=== PATIENT | female | born 1975 | race Hispanic/Latino ===

== ENCOUNTER 2024-02-03 06:40 | Emergency (ER) | payer SELFPAY ==
[2024-02-03 07:46] LABS: Absolute Basophils 0.1 K/uL (0-0.5); Absolute Eosinophils 0.3 K/uL (0-0.5); Absolute Lymphocytes (CBC) 4.1 K/uL (0.7-4.9); Absolute Monocytes 0.6 K/uL (0.1-1.3); Absolute Neutrophil 7.3 K/uL (1.8-8.0); Basophils % 0.8 % (0-1.3); Eosinophils % 2.4 % (0-4.4); Hematocrit 42.3 % (36.0-45.0); MCH 29.3 pg (27.0-35.0); MCHC 33.1 g/dL (32.0-36.0); MCV 88.7 fL (80-100); MPV 9.1 fL (7.6-11.3); Neutrophils % 58.8 % (41.7-73.7); Platelets 303 thou/uL (152-406); RBC Red Blood Cell Count 4.77 M/uL (3.86-4.86); Red Cell Distribution Width 13.1 % (12.1-15.2)
[2024-02-03 08:13] LABS: ALT/SGPT 17 U/L (13-56); AST/SGOT < 10 U/L (15-37); Albumin 3.4 g/dL (3.4-5.0); Alkaline Phosphatase 70 U/L (45-117); BUN Blood Urea Nitrogen 14 mg/dL (7-18); Bicarbonate 21 mEq/L (21-32); Bilirubin Direct 0.2 mg/dL (0-0.2); Bilirubin Indirect, Calculated 0.4 mg/dL (0.2-0.8); Bilirubin Total 0.6 mg/dL (0.2-1.0); Globulin 3.5 g/dL (2.3-3.5); Glomerular Filtration Rate 68 ml/min (=/>90); Glucose Level 109 mg/dL (74-106); Lipase 40 U/L (13-75); Protein, Total 6.9 g/dL (6.4-8.2); Sodium Level 137 mEq/L (136-145); Troponin High Sensitivity < 3.0 pg/mL (<58.9)
--- NOTE | 2024-02-03 08:29 | RAD REPORT ---
EXAM DESCRIPTION: RAD - Chest Single View - 02/03/2024 8:22 am CLINICAL HISTORY: CHEST PAIN COMPARISON: No comparisons FINDINGS: Lines: None. Lungs: No evidence of edema or pneumonia. Pleural: No significant pleural effusions or pneumothorax. Cardiac: The heart size is within normal limits. Mediastinum: Within normal limits. Bones: No acute fractures. Other: None IMPRESSION: No acute cardiopulmonary disease.
--- NOTE | 2024-02-03 10:25 | ER ---
Nurse's Notes [facility] Name: Saray Reed Age: 48 yrs Sex: Female : 1975 Arrival Date: 02/03/2024 Time: 06:40 Bed 5 Private MD: Diagnosis: Chest pain, unspecified;Hypokalemia Presentation: 02/02 06:49 Chief complaint: EMS states: chest pain and shortness of breath that woke her up this cp4 morning. Coronavirus screen: Client denies travel out of the [place] in the last 14 days. At this time, the client does not indicate any symptoms associated with coronavirus-19. Ebola Screen: Patient negative for fever greater than or equal to 101.5 degrees Fahrenheit, and additional compatible Ebola Virus Disease symptoms Patient denies exposure to infectious person. Patient denies travel to an Ebola-affected area in the 21 days before illness onset. No symptoms or risks identified at this time. Initial Sepsis Screen: Does the patient meet any 2 criteria? No. Patient's initial sepsis screen is negative. Does the patient have a suspected source of infection? No. Patient's initial sepsis screen is negative. Risk Assessment: Do you want to hurt yourself or someone else? Patient reports no desire to harm self or others. Onset of symptoms was February 03, 2024. 06:49 Method Of Arrival: EMS: [facility] 06:49 Acuity: PAT 3 cp4 Triage Assessment: 06:50 General: Appears uncomfortable, Behavior is calm, cooperative, appropriate for age. cp4 Pain: Complains of pain in chest. Cardiovascular: Rhythm is sinus rhythm with 1st degree heart block Chest pain. 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 - Infectious Disease History:: Denies. - Social history:: Smoking status: Patient denies any tobacco usage or history of. - Family history:: not pertinent. Screenin:47 Abuse screen: Denies threats or abuse. Denies injuries from another. Nutritional ha1 screening: No deficits noted. Tuberculosis screening: No symptoms or risk factors identified. 06:52 [facility] ED Fall Risk Assessment (Adult) History of falling in the last 3 months, cp4 including since admission No falls in past 3 months (0 pts) Confusion or Disorientation No (0 pts) Intoxicated or Sedated No (0 pts) Impaired Gait Mobility Assist Device Used No (0 pt) Altered Elimination No (0 pt) Score/Fall Risk Level 0 - 2 = Low Risk. Assessment: 06:52 Reassessment: No changes from previously documented assessment. cp4 07:35 Reassessment: Patient appears in no apparent distress at this time. No changes from 6 previously documented assessment. Patient and/or family updated on plan of care and expected duration. Pain level reassessed. Patient is alert, oriented x 3, equal unlabored respirations, skin warm/dry/pink. 08:55 Reassessment: Patient appears in no apparent distress at this time. No changes from kc6 previously documented assessment. Patient and/or family updated on plan of care and expected duration. Pain level reassessed. Patient is alert, oriented x 3, equal unlabored respirations, skin warm/dry/pink. 09:55 Reassessment: Patient appears in no apparent distress at this time. No changes from 6 previously documented assessment. Patient and/or family updated on plan of care and expected duration. Pain level reassessed. Patient is alert, oriented x 3, equal unlabored respirations, skin warm/dry/pink. Vital Signs: 06:49 BP 135 / 72; Pulse 90; Resp 18; Temp 98; Pulse Ox 100% ; Weight 68.04 kg; Height 5 ft. cp4 2 in. ; 09:29 BP 116 / 67; Pulse 76; Resp 16 S; Pulse Ox 100% on R/A; kc6 06:49 Body Mass Index 27.44 (68.04 kg, 157.48 cm) cp4 ED Course: 06:47 Patient arrived in ED. ha1 06:47 EKG done, by ED staff. Inserted saline lock: 20 gauge in right antecubital area, using ha1 aseptic technique. Blood collected. 06:50 Triage completed. cp4 06:50 Arm band placed on right wrist. Patient placed in an exam room, on a stretcher. cp4 06:52 No provider procedures requiring assistance completed. cp4 06:52 Bed in low position. Call light in reach. Side rails up X2. Placed in gown. Provided cp4 Education on: chest pain. 06:56 Rasheed Mejia MD is Attending Physician. rt 07:00 Report received from Jailene Hung RN. front desk monitor on. Pulse ox on. NIBP on. Pillow kc6 given. 07:16 Karina Young, RN is Primary Nurse. kc6 08:24 XRAY Chest (1 view) In Process Unspecified. EDMS 09:18 EKG done, by ED staff, reviewed by Rasheed Mejia MD. em1 09:28 Troponin High Sensitivity Sent. em1 09:28 Repeat lab(s) drawn. by me, sent to lab. em1 10:29 IV discontinued, intact, bleeding controlled, No redness/swelling at site. Pressure ap3 dressing applied. Administered Medications: No medications were administered Medication: 06:52 VIS not applicable for this client. cp4 Outcome: 10:24 Discharge ordered by MD. rt 10:30 Discharged to home ambulatory, with significant other, kc6 10:30 Condition: good 10:30 Discharge instructions given to patient, significant other, Instructed on discharge instructions, follow up and referral plans. medication usage, Demonstrated understanding of instructions, follow-up care, medications, Prescriptions given X 1, 10:30 Patient left the ED. kc6 Signatures: Dispatcher [employer] EDSC Enoch Otero em1 Allison Saldivar RN RN ap3 Jailene Hung RN RN ha1 Karina Young, ALEKSANDER RN kc6 Rasheed Mejia MD MD rt Jesika Thompson cp4
--- NOTE | 2024-02-03 10:25 | EDPHYS ---
Physician Documentation [facility] Name: Saray Reed Age: 48 yrs Sex: Female : 1975 Arrival Date: 02/03/2024 Time: 06:40 Bed 5 Private MD: ED Physician Rasheed Mejia HPI: 02/02 07:43 This 48 yrs old Female presents to ER via EMS with complaints of Chest Pain. rt 07:43 Patient presents to the ED with chest pain, shortness of breath that started at 5 AM. rt Is been waxing and waning in intensity, has improved significantly upon arrival to the ED. The pain is substernal, radiates to the jaw, left arm. She associated nausea, with sweating. Patient states that she had an abnormal stress test about a year ago, did not have a heart cath. Denies other acute complaints at this time, symptoms are moderate in severity, no other aggravating alleviating factors.. ICU SPECIALIST: 06:50 unknown cp4 Historical: - Allergies: 06:50 No Known Allergies; cp4 - Immunization history:: Adult Immunizations Adult Immunizations up to date. - Infectious Disease History:: Denies. - Social history:: Smoking status: Patient denies any tobacco usage or history of. - Family history:: not pertinent. ROS: 07:43 Constitutional: Negative for fever, chills, and weight loss, MS/Extremity: Negative for rt injury and deformity, Skin: Negative for injury, rash, and discoloration, Neuro: Negative for headache, weakness, numbness, tingling, and seizure, Psych: Negative for depression, anxiety, suicide ideation, homicidal ideation, and hallucinations, 07:43 Cardiovascular: Positive for chest pain, Negative for edema, 07:43 Respiratory: Positive for shortness of breath, Negative for cough, 07:43 Abdomen/GI: Positive for nausea, Negative for abdominal pain, Exam: 07:43 Constitutional: This is a well developed, well nourished patient who is awake, alert, rt and in no acute distress. Head/Face: Normocephalic, atraumatic. Chest/axilla: Normal chest wall appearance and motion. Nontender with no deformity. No lesions are appreciated. Cardiovascular: Regular rate and rhythm with a normal S1 and S2. No gallops, murmurs, or rubs. Normal PMI, no JVD. No pulse deficits. Respiratory: Lungs have equal breath sounds bilaterally, clear to auscultation and percussion. No rales, rhonchi or wheezes noted. No increased work of breathing, no retractions or nasal flaring. Abdomen/GI: Soft, non-tender, with normal bowel sounds. No distension or tympany. No guarding or rebound. No evidence of tenderness throughout. Skin: Warm, dry with normal turgor. Normal color with no rashes, no lesions, and no evidence of cellulitis. MS/ Extremity: Pulses equal, no cyanosis. Neurovascular intact. Full, normal range of motion. Neuro: Awake and alert, GCS 15, oriented to person, place, time, and situation. Cranial nerves II-XII grossly intact. Motor strength 5/5 in all extremities. Sensory grossly intact. Cerebellar exam normal. Normal gait. 07:43 ECG was reviewed by the Attending Physician. 17:54 ECG was reviewed by the Attending Physician. rt Vital Signs: 06:49 BP 135 / 72; Pulse 90; Resp 18; Temp 98; Pulse Ox 100% ; Weight 68.04 kg; Height 5 ft. cp4 2 in. ; 09:29 BP 116 / 67; Pulse 76; Resp 16 S; Pulse Ox 100% on R/A; kc6 06:49 Body Mass Index 27.44 (68.04 kg, 157.48 cm) cp4 MDM: 07:06 Patient medically screened. rt 17:54 Differential diagnosis: Nonspecific chest pain, pneumonia, pneumothorax, acute coronary rt syndrome. HEART Score: History: Moderately Suspicious (1), ECG: Normal (0), Age: > 45 and < 65 years (1), Risk Factors: No Risk Factors Known (0), Troponin: < or = 1 x Normal Limit (0), Total Score = 2. Data reviewed: vital signs, nurses notes, lab test result(s), EKG, radiologic studies. Consideration of Admission/Observation Escalation of care including admission/observation considered. Symptoms resolved with treatment in the ED, 2 negative troponins, unremarkable EKGs, low heart score, does not require mission to the hospital this time.. I considered the following discharge prescriptions or medication management in the emergency department Medications were administered in the Emergency Department. See MAR. Independent interpretation of the following test(s) in the Emergency Department CT Scan: My interpretation is No pneumonia seen on interpretation of x-ray images. Test considered but Not performed: CT: CT angiogram not indicated for pulmonary embolism. Counseling: I had a detailed discussion with the patient and/or guardian regarding the historical points, exam findings, and any diagnostic results supporting the discharge/admit diagnosis, lab results, radiology results, the need for outpatient follow up, to return to the emergency department if symptoms worsen or persist or if there are any questions or concerns that arise at home. Response to treatment: the patient's symptoms have resolved after treatment. 02/02 07:13 Order name: Basic Metabolic Panel; Complete Time: 08:20 rt 02/02 07:13 Order name: CBC with Diff; Complete Time: 08:20 rt 02/02 07:13 Order name: LFT's; Complete Time: 08:20 rt 02/02 07:13 Order name: Magnesium; Complete Time: 08:20 rt 02/02 07:13 Order name: Troponin HS; Complete Time: 08:20 rt 02/02 07:13 Order name: Lipase; Complete Time: 08:20 rt 02/02 09:06 Order name: Troponin High Sensitivity; Complete Time: 10:08 rt 02/02 07:13 Order name: XRAY Chest (1 view); Complete Time: 08:35 rt 02/02 07:13 Order name: EKG; Complete Time: 07:14 rt 02/02 09:06 Order name: EKG; Complete Time: 09:07 rt 02/02 07:13 Order name: Cardiac monitoring; Complete Time: 07:16 rt 02/02 07:13 Order name: EKG - Nurse/Tech; Complete Time: 07:16 rt 02/02 07:13 Order name: IV Saline Lock; Complete Time: 07:16 rt 02/02 07:13 Order name: Labs collected and sent; Complete Time: 07:16 rt 02/02 07:13 Order name: O2 Per Protocol; Complete Time: 07:16 rt 02/02 07:13 Order name: O2 Sat Monitoring; Complete Time: 07:16 rt 02/02 09:06 Order name: EKG - Nurse/Tech; Complete Time: 09:18 rt EC:43 Rate is 73 beats/min. Rhythm is regular, 1st Degree Block with No ectopy. QRS [place] is rt Normal. [place] interval is normal. QRS interval is normal. QT interval is normal. No Q waves. T waves are Normal. No ST changes noted. Interpreted by me. 17:54 Rate is 71 beats/min. Rhythm is regular, Normal Sinus Rhythm with No ectopy. Right axis rt deviation noted. [place] interval is normal. QRS interval is normal. QT interval is normal. No Q waves. T waves are Normal. No ST changes noted. Administered Medications: No medications were administered Disposition Summary: 02/03/24 10:24 Discharge Ordered Notes: Location: Home rt Problem: new rt Symptoms: have improved rt Condition: Stable rt Diagnosis - Chest pain, unspecified rt - Hypokalemia rt Followup: rt - With: Private Physician - When: 2 - 3 days - Reason: Discharge Instructions: - Discharge Summary Sheet rt - Nonspecific Chest Pain, Adult rt - Hypokalemia rt Forms: - Medication Reconciliation Form rt - Antibiotic Education rt - Prescription Opioid Use rt - Patient Portal Instructions rt - Leadership Thank You Letter rt Prescriptions: - Potassium Chloride 10 mEq Oral capsule, extended release - take 2 tablet ORAL route once daily; 6 tablet; Refills: 0, Product Selection rt Permitted Signatures: Dispatcher [employer] EDMO Rasheed Mejia MD MD rt Jesika Thompson cp4
[2024-02-03 11:09] VITALS: BP 116/67; TEMP 98; O2SAT 100
--- NOTE | 2024-02-03 13:27 | EKG ---
Test Date: 2024-02-03 Test Time: 06:46:26 [employer] Investigator: CONSUELO MEASUREMENT RESULTS: Intervals: Rate: 73 CT: 210 QRSD: 88 QT: 394 QTc: 434 [place]: P: 66 CT: 210 QRS: 74 T: 48 INTERPRETIVE STATEMENTS: Sinus rhythm with 1st degree AV block Otherwise normal ECG No previous ECG available for comparison Electronically Signed On 02-03-24 13:26:50 CDT by Domo Houston
--- NOTE | 2024-02-04 13:06 | EKG ---
Test Date: 2024-02-03 Test Time: 09:11:14 Plastics Scientist: SIS MEASUREMENT RESULTS: Intervals: Rate: 71 [place]: 204 QRSD: 84 QT: 392 QTc: 425 [place]: P: [place]: 204 QRS: 125 T: 66 INTERPRETIVE STATEMENTS: Normal sinus rhythm Left posterior fascicular block Abnormal ECG Compared to ECG 02/03/2024 06:46:26 Left posterior fascicular block now present First degree AV block no longer present Electronically Signed On 02-04-24 13:03:20 CDT by Domo Houston
== END 2024-02-03 10:30 | disposition home or self-care (01) ==
LOC: ER 06:40
DX: R07.9 Chest pain, unspecified (principal); E87.6 Hypokalemia
CPT/HCPCS: 36415; 71045; 80048; 80076; 83690; 83735; 84484; 85025; 93005; 99285

== ENCOUNTER 2024-09-05 21:16 | Emergency (ER) | payer SELFPAY ==
[2024-09-05] MEDS ORDERED: LORazepam 2 MG/ML VIAL ONE (22:04)
--- NOTE | 2024-09-05 22:38 | ER ---
Nurse's Notes [facility] Name: Saray Reed Age: 48 yrs Sex: Female : 1975 Arrival Date: 09/05/2024 Time: 21:16 Bed 14 Private MD: Diagnosis: Adverse reaction to THC gummies Presentation: 09/05 21:30 Chief complaint: EMS states: ate 1 edible, feels like heart salazar and body is cold. kj2 Coronavirus screen: Client denies travel out of the [place] in the last 14 days. Ebola Screen: No symptoms or risks identified at this time. Initial Sepsis Screen: Does the patient meet any 2 criteria? No. Patient's initial sepsis screen is negative. Does the patient have a suspected source of infection? No. Patient's initial sepsis screen is negative. Risk Assessment: Do you want to hurt yourself or someone else? Patient reports no desire to harm self or others. Onset of symptoms was September 05, 2024. 21:30 Method Of Arrival: EMS: [facility] 2 21:30 Acuity: PAT 3 kj2 Triage Assessment: 21:30 General: Appears in no apparent distress. comfortable, Behavior is calm, cooperative. kj2 Pain: Denies pain. Neuro: Level of Consciousness is awake, alert, obeys commands, Oriented to person, place, time, situation. Cardiovascular: Patient's skin is warm and dry. Respiratory: Airway is patent Respiratory effort is even, unlabored. GI: Reports vomiting. : No signs and/or symptoms were reported regarding the genitourinary system. Historical: - Allergies: 22:12 No Known Allergies; kj2 - PMHx: 22:12 Hypertensive disorder; kj2 - Immunization history:: Adult Immunizations unknown. - Infectious Disease History:: Denies. - Social history:: Smoking status: Patient uses street drugs, marijuana. Screenin:30 [facility] ED Fall Risk Assessment (Adult) History of falling in the last 3 months, kj2 including since admission No falls in past 3 months (0 pts) Confusion or Disorientation No (0 pts) Intoxicated or Sedated No (0 pts). [facility] ED Fall Risk Assessment (Adult) Impaired Gait No (0 pts) Mobility Assist Device Used No (0 pt) Altered Elimination No (0 pt) Score/Fall Risk Level 0 - 2 = Low Risk. Abuse screen: Denies threats or abuse. Denies injuries from another. Nutritional screening: No deficits noted. Tuberculosis screening: No symptoms or risk factors identified. Assessment: 21:30 General: see triage assessment. kj2 22:37 Reassessment: pt refused IV insertion/blood draw. kj2 22:38 Reassessment: Patient appears in no apparent distress at this time. Patient and/or kj2 family updated on plan of care and expected duration. Pain level reassessed. Patient is alert, oriented x 3, equal unlabored respirations, skin warm/dry/pink. 23:02 Reassessment:. cp4 23:03 Reassessment: Patient refused discharge vitals. GI: No signs and/or symptoms were cp4 reported involving the gastrointestinal system. Vital Signs: 21:30 BP 131 / 74; Pulse 124; Resp 20; Pulse Ox 100% on R/A; kj2 ED Course: 21:28 Patient arrived in ED. kb 21:28 Marisol Trotter FNP-C [facility]. kb 21:28 Shon Black MD is Attending Physician. kb 21:30 Patient has correct armband on for positive identification. Bed in low position. Call kj2 light in reach. Adult w/ patient. Provided Education on: call light. 21:58 Bhargavi Spivey, RN is Primary Nurse. kj2 22:12 Triage completed. kj2 22:37 No provider procedures requiring assistance completed. kj2 23:03 Patient did not have IV access during this emergency room visit. cp4 Administered Medications: 22:36 Not Given (Patient Refused): ativan1 mg IVP once kj2 Medication: 22:16 VIS not applicable for this client. kj2 Outcome: 22:38 Discharge ordered by . kb 23:03 Discharged to home via wheelchair, cp4 23:03 Condition: stable 23:03 Discharge instructions given to patient, family, Instructed on discharge instructions, follow up and referral plans. Demonstrated understanding of instructions, follow-up care, 23:04 Patient left the ED. cp4 Signatures: Marisol Trotter FNP-C FNP-Ckb Potter, Christina cp4 Bhargavi Spivey, RN RN kj2
--- NOTE | 2024-09-05 22:38 | EDPHYS ---
Physician Documentation [facility] Name: Saray Reed Age: 48 yrs Sex: Female : 1975 Arrival Date: 09/05/2024 Time: 21:16 Bed 14 Private MD: ED Physician Shon Black HPI: 09/05 23:55 This 48 yrs old Female presents to ER via EMS with complaints of kb Nausea/Vomiting. 23:55 Pt is a 48 year old female who presents after eating a THC gummy. States this was the kb first time she had one and it made her feel weird, lightheaded, nauseated. States she took a shower to improve her symptoms. No aggravating or alleviating factors . Historical: - Allergies: 22:12 No Known Allergies; kj2 - PMHx: 22:12 Hypertensive disorder; kj2 - Immunization history:: Adult Immunizations unknown. - Infectious Disease History:: Denies. - Social history:: Smoking status: Patient uses street drugs, marijuana. ROS: 23:53 Constitutional: As per HPI kb Exam: 23:53 Constitutional: This is a well developed, well nourished patient who is awake, alert, kb and in no acute distress. Head/Face: Normocephalic, atraumatic. ENT: Moist Mucous membranes Cardiovascular: Regular rate Respiratory: Respirations even and unlabored. No increased work of breathing. Talking in full sentences Abdomen/GI: Soft, non-tender. No distention Skin: Warm, dry with normal turgor. Normal color. MS/ Extremity: Pulses equal, no cyanosis. Neurovascular intact. Full, normal range of motion. Neuro: Awake and alert, GCS 15, oriented to person, place, time, and situation. Vital Signs: 21:30 BP 131 / 74; Pulse 124; Resp 20; Pulse Ox 100% on R/A; kj2 MDM: 21:28 Medical Screening Exam initiated kb 23:54 Differential diagnosis: Ingestion/exposure to THC gummies stress reaction. Data kb reviewed: vital signs, nurses notes. Historians other than the Patient: EMS: [facility]. ED course: Pt decided she did not want treatment. States she wants to go home. at bedside and will be with her tonight. Will return for any concerns. . 09/05 21:29 Order name: EKG; Complete Time: 21:30 kb Administered Medications: 22:36 Not Given (Patient Refused): ativan1 mg IVP once kj2 Disposition: 09/06 03:19 Co-signature as Attending Physician, Shon Black MD I agree with the assessment and pat plan of care. Disposition Summary: 09/05/24 22:38 Discharge Ordered Notes: Location: Home kb Condition: Stable kb Diagnosis - Adverse reaction to THC gummies kb Followup: kb - With: Emergency Department - When: As needed - Reason: Worsening of condition Followup: kb - With: Private Physician - When: 2 - 3 days - Reason: Recheck today's complaints, Continuance of care, Re-evaluation by your physician Forms: - Medication Reconciliation Form kb - Antibiotic Education kb - Prescription Opioid Use kb - Patient Portal Instructions kb - Leadership Thank You Letter kb Signatures: Dispatcher [employer] EDMS Marisol Trotter, SOFIE-C ACUTE CARE REGISTERED NURSE-Shon Powell MD MD cha Jordan, Krystal, RN RN kj2 Corrections: (The following items were deleted from the chart) 09/05 22:37 21:29 EKG - Nurse/Tech ordered. kb cp4 22:37 21:29 IV Saline Lock ordered. kb cp4 22:37 21:29 Labs collected and sent ordered. kb cp4
[2024-09-06 03:11] VITALS: BP 131/74; O2SAT 100
== END 2024-09-05 23:04 | disposition home or self-care (01) ==
LOC: ER 21:16
DX: R11.2 Nausea with vomiting, unspecified (principal); T40.715A Adverse effect of cannabis, initial encounter
CPT/HCPCS: 99283

== ENCOUNTER 2024-12-20 12:43 | Emergency (ER) | payer SELFPAY ==
[2024-12-20] MEDS ORDERED: ALBUTEROL 2.5 MG/3 ML NEB SOL ONE (13:10)
[2024-12-20] MEDS ORDERED: KETOROLAC 30 MG/ML INJ ONE (13:49)
[2024-12-20] MEDS ORDERED: ONDANSETRON 4 MG (ODT) TAB ONE (13:49)
[2024-12-20 13:52] LABS: Specific Gravity 1.006 (1.005-1.030); Sqamous Epithelial <5 /HPF (None Seen); Urine Bacteria <20 /HPF (<20); Urine Bilirubin NEGATIVE (Negative); Urine Blood Trace (Negative); Urine Clarity Turbid (Clear); Urine Color Colorless (Yellow); Urine Culture Reflex Order NOT NEEDED; Urine Glucose NEGATIVE (Negative); Urine Ketones NEGATIVE (Negative); Urine Microscopic Reflex YN ORDER UMIC; Urine Nitrite NEGATIVE (Negative); Urine Protein NEGATIVE (Negative); Urine RBC <5 /HPF (None Seen); Urine Urobilinogen Normal (Normal); Urine WBC <5 /HPF (<5); Urine Yeast (Budding) Trace /HPF (None Seen); Urine pH 6.5 (5.0-7.0)
[2024-12-20 13:52] LABS: SARS-CoV-2 Antigen Rapid Res Negative (Negative)
--- NOTE | 2024-12-20 14:12 | RAD REPORT ---
Procedure: Chest Single View HISTORY: Cough COMPARISON: 2023 FINDINGS: The lungs appear clear of acute infiltrate. No significant pleural effusion noted. The heart is normal size. IMPRESSION: No acute abnormality is displayed.
--- NOTE | 2024-12-20 14:26 | EDPHYS ---
Physician Documentation [facility] Name: Saray Reed Age: 48 yrs Sex: Female : 1975 Arrival Date: 12/20/2024 Time: 12:43 Bed DIS4 Private MD: ED Physician Félix Jasmine HPI: 12/20 14:24 This 48 yrs old Female presents to ER via Ambulatory with complaints of Chest kb Congestion, Cough, Headache. 14:24 Patient is a 48-year-old female who presents for cough, congestion, headache, fever kb that started 1 week ago. States she is also had strong smelling urine so was concerned for UTI. Historical: - Allergies: 13:02 No Known Allergies; ph - Home Meds: 13:02 phentermine oral [Active]; ph - PMHx: 13:02 Hypertensive disorder; ph - Infectious Disease History:: Denies. - Social history:: Smoking status: Patient denies any tobacco usage or history of. ROS: 14:23 Constitutional: As per HPI kb Exam: 14:23 Constitutional: This is a well developed, well nourished patient who is awake, alert, kb and in no acute distress. Head/Face: Normocephalic, atraumatic. ENT: Moist Mucous membranes Cardiovascular: Regular rate Respiratory: Respirations even and unlabored. No increased work of breathing. Talking in full sentences Abdomen/GI: Soft, non-tender. No distention Skin: Warm, dry with normal turgor. Normal color. MS/ Extremity: Pulses equal, no cyanosis. Neurovascular intact. Full, normal range of motion. Neuro: Awake and alert, GCS 15, oriented to person, place, time, and situation. Vital Signs: 13:00 Pulse 98; Resp 16; Pulse Ox 99% on R/A; Height 5 ft. 3 in. ; Pain 9/10; ph 13:11 BP 121 / 76; Temp 98.7(O); em1 13:00 Pain Scale: Adult ph MDM: 12:55 Medical Screening Exam initiated kb 14:23 Differential diagnosis: URI, strep, COVID, bronchitis, pneumonia. Data reviewed: vital kb signs, nurses notes. I considered the following discharge prescriptions or medication management in the emergency department I discussed and recommended Over The Counter medications, Antibiotics: At this time antibiotics are not recommended. Counseling: I had a detailed discussion with the patient and/or guardian regarding the historical points, exam findings, and any diagnostic results supporting the discharge/admit diagnosis, lab results, radiology results, the need for outpatient follow up, a family practitioner, to return to the emergency department if symptoms worsen or persist or if there are any questions or concerns that arise at home. 12/20 13:07 Order name: UA Rfx Stevie Cult if indicated; Complete Time: 13:57 kb 12/20 13:07 Order name: SARS RAPID; Complete Time: 13:57 kb 12/20 13:07 Order name: Group A Streptococcus Rapid; Complete Time: 13:57 kb 12/20 13:54 Order name: Throat Culture EDMS 12/20 13:07 Order name: Chest Single View XRAY; Complete Time: 14:13 kb Administered Medications: 13:15 Drug: Albuterol Inhalation 2.5 mg Inhalation once Route: Inhalation; ss 13:55 Drug: Ondansetron Oral Disintegrating Tablet Oral Disintegrating Tablet 4 mg PO once ss Route: PO; 14:50 Follow up: Response: No adverse reaction; Marked relief of symptoms jb4 13:55 Drug: Ketorolac IM 30 mg IM once Route: IM; Site: left deltoid; ss 14:49 Follow up: Response: No adverse reaction; Marked relief of symptoms jb4 14:49 Drug: Dexamethasone IM 10 mg IM once Route: IM; Site: right deltoid; jb4 14:49 Follow up: Response: Medication administered at discharge. jb4 Disposition: 18:12 Co-signature as Attending Physician, Félix Jasmine MD I reviewed the patient's care rn provided by the Advanced Practice Provider and agree with the diagnosis and treatment plan. Disposition Summary: 12/20/24 14:25 Discharge Ordered Notes: Location: Home kb Condition: Stable kb Diagnosis - Acute upper respiratory infection, unspecified kb Followup: kb - With: Emergency Department - When: As needed - Reason: Worsening of condition Followup: kb - With: Private Physician - When: 2 - 3 days - Reason: Recheck today's complaints, Continuance of care, Re-evaluation by your physician Discharge Instructions: - Discharge Summary Sheet kb - Upper Respiratory Infection, Adult, [id number] kb - Viral Respiratory Infection, [id number] kb Forms: - Medication Reconciliation Form kb - Antibiotic Education kb - Prescription Opioid Use kb - Patient Portal Instructions kb - Leadership Thank You Letter kb Prescriptions: - albuterol sulfate 90 mcg/actuation Inhalation HFA Aerosol Inhaler - inhale 2 puff INHALATION route every 4 to 6 hours As needed as needed for kb shortness of breath or wheezing; 1 Unspecified; Refills: 0, Product Selection Permitted Signatures: Dispatcher [employer] EDMarisol Biggs, SOFIE-C WIND OPERATIONS MANAGER-Juanb Félix Jasmine MD MD rn Blanchard, Shelby, RN RN Keeley Schroeder RN RN Chester Humphries, ALEKSANDER RN jb4
--- NOTE | 2024-12-20 14:26 | ER ---
Nurse's Notes [facility] Name: Saray Reed Age: 48 yrs Sex: Female : 1975 Arrival Date: 12/20/2024 Time: 12:43 Bed DIS4 Private MD: Diagnosis: Acute upper respiratory infection, unspecified Presentation: 12/20 13:00 Chief complaint: Patient states: nasal congestion and cough that began 1.5 weeks ago. ph Coronavirus screen: Client denies travel out of the [place] in the last 14 days. Ebola Screen: Patient denies exposure to infectious person. Patient denies travel to an Ebola-affected area in the 21 days before illness onset. Initial Sepsis Screen: Does the patient meet any 2 criteria? No. Patient's initial sepsis screen is negative. Does the patient have a suspected source of infection? No. Patient's initial sepsis screen is negative. Risk Assessment: Do you want to hurt yourself or someone else? Patient reports no desire to harm self or others. Onset of symptoms was December 10, 2024. 13:00 Method Of Arrival: Ambulatory ph 13:00 Acuity: PAT 3 ph Historical: - Allergies: 13:02 No Known Allergies; ph - Home Meds: 13:02 phentermine oral [Active]; ph - PMHx: 13:02 Hypertensive disorder; ph - Infectious Disease History:: Denies. - Social history:: Smoking status: Patient denies any tobacco usage or history of. Screenin:15 Abuse screen: Denies threats or abuse. Denies injuries from another. Nutritional ss screening: No deficits noted. Tuberculosis screening: Never had TB. 14:[address] [facility] ED Fall Risk Assessment (Adult) History of falling in the last 3 months, jb4 including since admission No falls in past 3 months (0 pts) Confusion or Disorientation No (0 pts) Intoxicated or Sedated No (0 pts) Impaired Gait No (0 pts) Mobility Assist Device Used No (0 pt) Altered Elimination No (0 pt) Score/Fall Risk Level 0 - 2 = Low Risk Oriented to surroundings, Maintained a safe environment. Assessment: 13:15 General: Appears uncomfortable, Behavior is calm, cooperative, Reports fever for > 3 ss days, feeling ill for > 3 days. Pain: Complains of pain in generalized headache Pain currently is 9 out of 10 on a pain scale. Is continuous. Neuro: Level of Consciousness is awake, alert, obeys commands, Oriented to person, place, time, situation. Respiratory: Airway is patent Respiratory effort is even, unlabored, Respiratory pattern is regular, symmetrical. GI: Reports nausea. :. EENT: Oral mucosa is moist. Reports nasal congestion. Derm: Skin is intact, is healthy with good turgor, Skin is pink, warm \T\ dry. normal. 14:11 Reassessment: Patient appears in no apparent distress at this time. Patient and/or jb4 family updated on plan of care and expected duration. Pain level reassessed. Patient is alert, oriented x 3, equal unlabored respirations, skin warm/dry/pink. Vital Signs: 13:00 Pulse 98; Resp 16; Pulse Ox 99% on R/A; Height 5 ft. 3 in. ; Pain 9/10; ph 13:11 BP 121 / 76; Temp 98.7(O); em1 13:00 Pain Scale: Adult ph ED Course: 12:49 Patient arrived in ED. mr 12:55 Marisol Trotter, MAHAD is PHCP. kb 12:55 Félix Jasmine MD is Attending Physician. kb 13:00 Arm band placed on right wrist. ph 13:01 Triage completed. ph 13:15 Patient has correct armband on for positive identification. ss 13:15 No provider procedures requiring assistance completed. Patient did not have IV access ss during this emergency room visit. 13:36 Group A Streptococcus Rapid Sent. ss 13:36 SARS RAPID Sent. ss 13:36 UA Rfx Stevie Cult if indicated Sent. ss 14:04 Chest Single View XRAY In Process Unspecified. EDMS 14:11 Chester Young, RN is Primary Nurse. jb4 14:50 Provided Education on: discharge instructions.. jb4 Administered Medications: 13:15 Drug: Albuterol Inhalation 2.5 mg Inhalation once Route: Inhalation; ss 13:55 Drug: Ondansetron Oral Disintegrating Tablet Oral Disintegrating Tablet 4 mg PO once ss Route: PO; 14:50 Follow up: Response: No adverse reaction; Marked relief of symptoms jb4 13:55 Drug: Ketorolac IM 30 mg IM once Route: IM; Site: left deltoid; ss 14:49 Follow up: Response: No adverse reaction; Marked relief of symptoms jb4 14:49 Drug: Dexamethasone IM 10 mg IM once Route: IM; Site: right deltoid; jb4 14:49 Follow up: Response: Medication administered at discharge. jb4 Medication: 13:15 VIS not applicable for this client. ss Outcome: 14:25 Discharge ordered by . kb 14:50 Discharged to home ambulatory, with family, jb4 14:50 Condition: stable 14:50 Discharge instructions given to patient, Instructed on discharge instructions, follow up and referral plans. medication usage, Demonstrated understanding of instructions, follow-up care, medications, Prescriptions given X 1, 14:50 Patient left the ED. jb4 Signatures: Dispatcher [employer] EDMS Marisol Trotter, BOILER ROOM OPERATOR-C BOILER ROOM OPERATOR-CkMelonie Ken, Reg Reg mr OteroEnoch em1 Ellie Hunter, RN RN Keeley Pandya RN RN Chester Young RN RN jb4 Corrections: (The following items were deleted from the chart) 13:03 13:00 Acuity: PAT 4 ph ph
[2024-12-20] MEDS ORDERED: dexAMETHasone 10 MG/ML VIAL ONE (14:36)
[2024-12-20 15:00] VITALS: O2SAT 99
[2024-12-20 15:01] VITALS: BP 121/76; TEMP 98.7
== END 2024-12-20 14:50 | disposition home or self-care (01) ==
LOC: ER 12:43
DX: J06.9 Acute upper respiratory infection, unspecified (principal); Z11.52 Encounter for screening for COVID-19; I10 Essential (primary) hypertension
CPT/HCPCS: 36415; 71045; 81001; 87070; 87426; 96372; 99284; J1100; J7613; Q0162

== ENCOUNTER 2024-12-23 09:39 | Emergency (ER) | payer SELFPAY ==
[2024-12-23] MEDS ORDERED: KETOROLAC 30 MG/ML INJ ONE (10:28)
[2024-12-23] MEDS ORDERED: NA CHLORIDE 0.9% 1,000 ML ONE (10:28)
[2024-12-23] MEDS ORDERED: ONDANSETRON 4 MG/2 ML VIAL ONE ×2 (10:28→15:01)
[2024-12-23 10:59] LABS: Absolute Basophils 0.1 K/uL (0-0.5); Absolute Eosinophils 0.2 K/uL (0-0.5); Absolute Lymphocytes (CBC) 2.3 K/uL (0.7-4.9); Absolute Monocytes 0.8 K/uL (0.1-1.3); Absolute Neutrophil 7.4 K/uL (1.8-8.0); Basophils % 0.9 % (0-1.3); Eosinophils % 1.6 % (0-4.4); Hematocrit 40.4 % (36.0-45.0); Hemoglobin 13.5 g/dL (12.0-15.0); Lymphocytes % 21.5 % (15.3-44.8); MCH 29.3 pg (27.0-35.0); MCHC 33.4 g/dL (32.0-36.0); MCV 87.6 fL (80-100); MPV 7.7 fL (7.6-11.3); Monocytes % 7.2 % (3.3-12.3); Neutrophils % 68.8 % (41.7-73.7); Platelets 317 thou/uL (152-406); RBC Red Blood Cell Count 4.61 M/uL (3.86-4.86); Red Cell Distribution Width 13.2 % (12.1-15.2)
[2024-12-23 11:10] LABS: Influenza A Ag Negative; Influenza B Ag Negative; SARS-CoV-2 Antigen Rapid Res Negative (Negative)
[2024-12-23 11:19] LABS: Albumin 3.3 g/dL (3.4-5.0); Albumin/Globulin Ratio 0.8 (1.1-1.8); Anion Gap 7.2 mEq/L (5.0-15.0); Bilirubin Total 0.5 mg/dL (0.2-1.0); Globulin 3.9 g/dL (2.3-3.5); Potassium 4.2 mEq/L (3.5-5.1); Protein, Total 7.2 g/dL (6.4-8.2)
[2024-12-23 11:56] LABS: Specific Gravity 1.011 (1.005-1.030); Urine Bilirubin NEGATIVE (Negative); Urine Blood Negative (Negative); Urine Clarity Clear (Clear); Urine Color Colorless (Yellow); Urine Glucose NEGATIVE (Negative); Urine Ketones NEGATIVE (Negative); Urine Microscopic Reflex YN NO UMIC; Urine Nitrite NEGATIVE (Negative); Urine Protein NEGATIVE (Negative); Urine Urobilinogen Normal (Normal); Urine pH 7.5 (5.0-7.0)
[2024-12-23 11:58] LABS: Specific Gravity 1.011 (1.005-1.030)
[2024-12-23] MEDS ORDERED: PROMETHAZINE INJ 25 MG/ML AMP ONE (13:59)
--- NOTE | 2024-12-23 14:56 | ER ---
Nurse's Notes [facility] Name: Saray Reed Age: 48 yrs Sex: Female : 1975 Arrival Date: 12/23/2024 Time: 09:39 Bed 19 Private MD: Diagnosis: Vomiting, viral illness Presentation: 12/23 10:20 Chief complaint: Patient states: Non stop vomiting since last night. Here 2 days ago ll1 with flu-like sytmpoms. Coronavirus screen: Client denies travel out of the [place] in the last 14 days. congestion, cough unrelated to allergies, nausea, vomiting. Client presents with at least one sign or symptom that may indicate coronavirus-19. Standard/surgical mask placed on the client. Ebola Screen: Patient denies travel to an Ebola-affected area in the 21 days before illness onset. Initial Sepsis Screen: Does the patient meet any 2 criteria? No. Patient's initial sepsis screen is negative. Does the patient have a suspected source of infection? No. Patient's initial sepsis screen is negative. Risk Assessment: Do you want to hurt yourself or someone else? Patient reports no desire to harm self or others. Onset of symptoms was December 20, 2024. 10:20 Method Of Arrival: Ambulatory ll1 10:20 Acuity: PAT 3 ll1 Triage Assessment: 10:22 General: Appears uncomfortable, Behavior is calm, cooperative, appropriate for age. ll1 Pain: Quality of pain is described as crampy. GI: Reports lower abdominal pain, upper abdominal pain, cramping, nausea, vomiting. METHODS SPECIALIST ENGINEER: 11:07 LMP N/A - Hysterectomy, Not ll1 Historical: - Allergies: 10:20 No Known Allergies; ll1 - PMHx: 10:09 Hypertensive disorder; ll1 - PSHx: 10:20 None; ll1 - Immunization history:: Adult Immunizations up to date. - Infectious Disease History:: Denies. - Social history:: Smoking status: Patient denies any tobacco usage or history of. Screenin:07 [facility] ED Fall Risk Assessment (Adult) History of falling in the last 3 months, ll1 including since admission No falls in past 3 months (0 pts) Confusion or Disorientation No (0 pts) Intoxicated or Sedated No (0 pts) Impaired Gait Yes (1 pt) Mobility Assist Device Used Yes (1 pt) Altered Elimination No (0 pt) Score/Fall Risk Level 0 - 2 = Low Risk Maintained a safe environment, Hourly rounding (assess needs \T\ fall precautionary measures) done. Abuse screen: Denies threats or abuse. Nutritional screening: No deficits noted. Tuberculosis screening: No symptoms or risk factors identified. Assessment: 10:43 Reassessment: No changes from previously documented assessment. Patient and/or family ll1 updated on plan of care and expected duration. Pain level reassessed. Patient is alert, oriented x 3, equal unlabored respirations, skin warm/dry/pink. 12:10 General: Appears in no apparent distress. Behavior is cooperative. kj2 13:10 Reassessment: Patient appears in no apparent distress at this time. Patient and/or kj2 family updated on plan of care and expected duration. Pain level reassessed. Patient is alert, oriented x 3, equal unlabored respirations, skin warm/dry/pink. 14:10 Reassessment: Patient appears in no apparent distress at this time. Patient and/or kj2 family updated on plan of care and expected duration. Pain level reassessed. Patient is alert, oriented x 3, equal unlabored respirations, skin warm/dry/pink. 15:10 Reassessment: Patient appears in no apparent distress at this time. Patient and/or kj2 family updated on plan of care and expected duration. Pain level reassessed. Patient is alert, oriented x 3, equal unlabored respirations, skin warm/dry/pink. 15:45 GI: Abdomen is non-distended. kj2 Vital Signs: 10:20 BP 139 / 73; Pulse 97; Resp 17; Temp 99.1(O); Pulse Ox 97% on R/A; Weight 76.2 kg; ll1 Height 5 ft. 3 in. ; 12:06 BP 124 / 60; Pulse 62; Resp 16; Pulse Ox 98% ; ll1 13:10 BP 122 / 62; Pulse 64; Resp 20; Pulse Ox 100% on R/A; kj2 14:10 BP 122 / 61; Pulse 60; Resp 18; Pulse Ox 100% on R/A; kj2 15:10 BP 124 / 62; Pulse 66; Resp 20; Temp 98; Pulse Ox 100% ; kj2 10:20 Body Mass Index 29.76 (76.20 kg, 160.02 cm) ll1 ED Course: 09:43 Patient arrived in ED. al6 09:43 Boris Siegel MD is Attending Physician. sp3 10:09 Arm band placed on Patient placed in an exam room, on a stretcher. ll1 10:15 Rylan Auguste, RN is Primary Nurse. ll1 10:22 Triage completed. ll1 10:43 COVID-19 Ag + Flu A+B Ag Sent. ll1 10:43 Initial lab(s) drawn, COVID swab sent to lab. Inserted saline lock: 22 gauge in right ll1 antecubital area, using aseptic technique. Blood collected. Flushed with 10 mL NS. 11:06 Patient has correct armband on for positive identification. Bed in low position. ll1 Provided Education on: ER procedures and process. Warm blanket given. 11:06 COVID-19 Ag + Flu A+B Ag Sent. ll1 15:45 No provider procedures requiring assistance completed. IV discontinued, intact, kj2 bleeding controlled, No redness/swelling at site. Pressure dressing applied. Administered Medications: 10:43 Drug: TORadol - Ketorolac IVP 15 mg IVP once Route: IVP; Site: right antecubital; ll1 11:06 Follow up: Response: No adverse reaction; Pain is decreased ll1 10:43 Drug: Ondansetron IVP 4 mg IVP once; over 2 minutes Route: IVP; Site: right antecubital;ll1 11:06 Follow up: Response: No adverse reaction; Nausea is decreased ll1 10:43 Drug: NS 0.9% IV 1000 ml IV at 1 bolus Per protocol; to be given as a bolus over 60 ll1 minutes Route: IV; Rate: 1 bolus; Site: right antecubital; 11:41 Follow up: Response: No adverse reaction; IV Status: Completed infusion; IV Intake: ll1 1000ml 14:02 Drug: Promethazine IVP 12.5 mg IVP once Route: IVP; Site: right antecubital; kj2 15:43 Follow up: Response: No adverse reaction kj2 15:09 Drug: Ondansetron IVP 4 mg IVP once; over 2 minutes Route: IVP; Site: right antecubital;me1 15:44 Follow up: Response: No adverse reaction kj2 Medication: 11:07 VIS not applicable for this client. ll1 Intake: 11:41 IV: 1000ml; Total: 1000ml. ll1 Outcome: 14:55 Discharge ordered by . sp3 15:46 Discharged to home ambulatory, kj2 15:46 Condition: stable 15:46 Discharge instructions given to patient, Instructed on discharge instructions, follow up and referral plans. Demonstrated understanding of instructions, follow-up care, 15:53 Patient left the ED. kj2 Signatures: Rylan Auguste RN RN ll1 Boris Siegel MD MD sp3 Kirstie Garrison RN RN me1 Bhargavi Spivey RN RN kj2 Jaqui Rod6
--- NOTE | 2024-12-23 14:56 | EDPHYS ---
Physician Documentation [facility] Name: Saray Reed Age: 48 yrs Sex: Female : 1975 Arrival Date: 12/23/2024 Time: 09:39 Bed 19 Private MD: ED Physician Boris Siegel HPI: 12/23 10:25 This 48 yrs old Female presents to ER via Ambulatory with complaints of Cough, sp3 Vomiting. 10:25 48-year-old female with history of hypertension presents to the ED with chief complaint sp3 of continued cough and now new emesis and worsening body fatigue. Patient was seen here 2 days ago where she had a negative chest x-ray and negative viral swabs (influenza was not resulted). She received a dexamethasone and was using OTC medications. Today she states that over the last 24 hours she has developed vomiting and unable to keep anything down. She denies any abdominal pain, back pain, blood in her emesis or stool, or any other new symptoms. ROS otherwise negative.. 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 - Infectious Disease History:: Denies. - Social history:: Smoking status: Patient denies any tobacco usage or history of. ROS: 10:26 Constitutional: Negative for fever, chills, and weight loss, Eyes: Negative for injury, sp3 pain, redness, and discharge, Neck: Negative for injury, pain, and swelling, Cardiovascular: Negative for chest pain, palpitations, and edema, Back: Negative for injury and pain, MS/Extremity: Negative for injury and deformity, Skin: Negative for injury, rash, and discoloration, Neuro: Negative for headache, weakness, numbness, tingling, and seizure, Psych: Negative for depression, anxiety, suicide ideation, homicidal ideation, and hallucinations, Allergy/Immunology: Negative for hives, rash, and allergies, Endocrine: Negative for neck swelling, polydipsia, polyuria, polyphagia, and marked weight changes, 10:26 All other systems are negative, Exam: 10:27 Constitutional: This is a well developed, well nourished patient who is awake, alert, sp3 and in no acute distress. Head/Face: Normocephalic, atraumatic. Eyes: Pupils equal round and reactive to light, extra-ocular motions intact. Lids and lashes normal. Conjunctiva and sclera are non-icteric and not injected. Cornea within normal limits. Periorbital areas with no swelling, redness, or edema. ENT: Nares patent. No nasal discharge, no septal abnormalities noted. External auditory canals are clear. Oropharynx with no redness, swelling, or masses, exudates, or evidence of obstruction, uvula midline. Mucous membranes moist. Neck: Trachea midline, no thyromegaly or masses palpated, and no cervical lymphadenopathy. Supple, full range of motion without nuchal rigidity, or vertebral point tenderness. No Meningismus. Chest/axilla: Normal chest wall appearance and motion. Nontender with no deformity. No lesions are appreciated. Cardiovascular: Regular rate and rhythm with a normal S1 and S2. No gallops, murmurs, or rubs. Normal PMI, no JVD. No pulse deficits. Respiratory: Lungs have equal breath sounds bilaterally, clear to auscultation and percussion. No rales, rhonchi or wheezes noted. No increased work of breathing, no retractions or nasal flaring. Abdomen/GI: Soft, non-tender, with normal bowel sounds. No distension or tympany. No guarding or rebound. No evidence of tenderness throughout. Back: No spinal tenderness. No costovertebral tenderness. Full range of motion. Skin: Warm, dry with normal turgor. Normal color with no rashes, no lesions, and no evidence of cellulitis. MS/ Extremity: Pulses equal, no cyanosis. Neurovascular intact. Full, normal range of motion. Neuro: Awake and alert, GCS 15, oriented to person, place, time, and situation. Cranial nerves II-XII grossly intact. Motor strength 5/5 in all extremities. Sensory grossly intact. Cerebellar exam normal. Normal gait. Psych: Awake, alert, with orientation to person, place and time. Behavior, mood, and affect are within normal limits. 10:27 Respiratory: Active cough noted. No wheezing or rales noted. Vital signs are normal. Room air pulse oxygenation 97%, 11:03 ECG was reviewed by the Attending Physician. EKG demonstrates normal sinus rhythm with sp3 a first-degree AV block with LA interval 204, normal intervals otherwise, normal axis, normal QRS and normal ST/T-segment's without evidence of acute ischemia. Vital Signs: 10:20 BP 139 / 73; Pulse 97; Resp 17; Temp 99.1(O); Pulse Ox 97% on R/A; Weight 76.2 kg; ll1 Height 5 ft. 3 in. ; 12:06 BP 124 / 60; Pulse 62; Resp 16; Pulse Ox 98% ; ll1 13:10 BP 122 / 62; Pulse 64; Resp 20; Pulse Ox 100% on R/A; kj2 14:10 BP 122 / 61; Pulse 60; Resp 18; Pulse Ox 100% on R/A; kj2 15:10 BP 124 / 62; Pulse 66; Resp 20; Temp 98; Pulse Ox 100% ; kj2 10:20 Body Mass Index 29.76 (76.20 kg, 160.02 cm) ll1 MDM: 09:58 Medical Screening Exam initiated sp3 10:27 Data reviewed: vital signs, nurses notes, old medical records, lab test result(s), sp3 radiologic studies. ED course: 48-year-old female with history of hypertension now with vomiting and generalized malaise with continued cough. Chest x-ray from 2 days ago was clear. Today we will add general labs, EKG, troponin, recheck influenza and COVID, and provide general supportive care including ondansetron IV, normal saline. Disposition pending workup and patient course. Differential diagnosis includes continued viral illness, foodborne illness, to lesser degree ACS or other pathology.. 14:54 ED course: Patient not keeping down p.o. but still mildly nauseated. Will give 1 more sp3 dose of ondansetron and discharge patient home at this time. Follow-up with PCP as needed. Work note will be given as well.. 12/23 10:19 Order name: CBC with Diff; Complete Time: 12:56 sp3 12/23 10:19 Order name: CMP; Complete Time: 12:56 sp3 12/23 10:19 Order name: Lipase; Complete Time: 12:56 sp3 12/23 10:19 Order name: Test, Urine; Complete Time: 12:56 sp3 12/23 10:19 Order name: UA Rfx Stevie Cult if indicated; Complete Time: 12:56 sp3 12/23 10:19 Order name: COVID-19 Ag + Flu A+B Ag; Complete Time: 12:56 sp3 12/23 10:28 Order name: Troponin High Sensitivity; Complete Time: 12:56 sp3 12/23 10:28 Order name: EKG; Complete Time: 10:28 sp3 12/23 10:19 Order name: IV Saline Lock; Complete Time: 10: sp3 12/23 10:19 Order name: Labs collected and sent; Complete Time: 10: sp3 12/23 10:28 Order name: EKG - Nurse/Tech; Complete Time: 11:06 3 Administered Medications: 10:43 Drug: TORadol - Ketorolac IVP 15 mg IVP once Route: IVP; Site: right antecubital; ll1 11:06 Follow up: Response: No adverse reaction; Pain is decreased ll1 10:43 Drug: Ondansetron IVP 4 mg IVP once; over 2 minutes Route: IVP; Site: right antecubital;ll1 11:06 Follow up: Response: No adverse reaction; Nausea is decreased ll1 10:43 Drug: NS 0.9% IV 1000 ml IV at 1 bolus Per protocol; to be given as a bolus over 60 ll1 minutes Route: IV; Rate: 1 bolus; Site: right antecubital; 11:41 Follow up: Response: No adverse reaction; IV Status: Completed infusion; IV Intake: ll1 1000ml 14:02 Drug: Promethazine IVP 12.5 mg IVP once Route: IVP; Site: right antecubital; kj2 15:43 Follow up: Response: No adverse reaction kj2 15:09 Drug: Ondansetron IVP 4 mg IVP once; over 2 minutes Route: IVP; Site: right antecubital;me1 15:44 Follow up: Response: No adverse reaction kj2 Disposition Summary: 12/23/24 14:55 Discharge Ordered Notes: Location: Home sp3 Condition: Stable sp3 Diagnosis - Vomiting, viral illness sp3 Followup: sp3 - With: Private Physician - When: Upon discharge from the Emergency Department - Reason: Continuance of care Discharge Instructions: - Discharge Summary Sheet sp3 - Vomiting, Adult sp3 Forms: - Medication Reconciliation Form sp3 - Antibiotic Education sp3 - Prescription Opioid Use sp3 - Patient Portal Instructions sp3 - Leadership Thank You Letter sp3 - Work release form kj2 Prescriptions: - promethazine 25 mg Oral Tablet - take 1 tablet ORAL route every 6 hours As needed; 20 tablet; Refills: 0, sp3 Product Selection Permitted - ondansetron 8 mg Oral Tablet,disintegrating - take 1 tablet ORAL route every 12 hours; 20 tablet; Refills: 0, Product sp3 Selection Permitted Signatures: Dispatcher [employer] Rylan Murillo, RN RN ll1 Boris Siegel MD MD sp3 Kirstie Garrison RN RN me1 Bhargavi Spivey RN RN kj2 Corrections: (The following items were deleted from the chart) 10: 10:27 Data reviewed: vital signs, nurses notes, old medical records, lab test sp3 result(s), radiologic studies, sp3 10: 10:27 ED course: 48-year-old female with history of hypertension now with vomiting and sp3 generalized malaise with continued cough.. sp3 10: 10:29 Troponin High Sensitivity+[id number].BRZ ordered. EDMS EDMS
[2024-12-23 16:18] VITALS: O2SAT 100
[2024-12-23 16:20] VITALS: BP 124/62; TEMP 98
--- NOTE | 2024-12-24 12:21 | EKG ---
Test Date: 2024-12-23 Test Time: 10:55:07 Spray Unit Feeder: LML MEASUREMENT RESULTS: Intervals: Rate: 87 ID: [id number] QRSD: 76 QT: 370 QTc: 445 [place]: P: 66 ID: [id number] QRS: 78 T: 46 INTERPRETIVE STATEMENTS: Normal sinus rhythm Normal ECG Compared to ECG 02/03/2024 09:11:14 Left posterior fascicular block no longer present Electronically Signed On 12-24-24 12:20:00 CDT by Jorge Luis Dominguez
== END 2024-12-23 15:53 | disposition home or self-care (01) ==
LOC: ER 09:39
DX: B34.9 Viral infection, unspecified (principal); Z11.52 Encounter for screening for COVID-19
CPT/HCPCS: 36415; 80053; 81003; 81025; 83690; 84484; 85025; 87428; 93005; 96361; 96374; 96375; 99284; J2405; J2550; J7030